=== PATIENT | female | born 1935 | race African-American/Black ===

== ENCOUNTER 2019-05-02 15:06 | Emergency (ER) | payer MEDICARE, BC ==
[~2019-05-02] VITALS: Ht 165.1 cm; Wt 79.0 kg
[~2019-05-02 15:06] MED LIST: ACETAMIN325 MG PO; ADALAT CC OR; AMLODIPINE10 MG PO; ASPIRIN EC81 MG PO; BENADRYL25 M1 PO; CALCITRIOL0.25 MC1; CLONIDINE0.1 MG; CLONIDINE0.1 MG OR; CLONIDINE0.1 MG PO; COREG12.5 MG OR; DIOVAN160 MG OR; DIOVAN80 MG PO; GLYBURIDE2.5 MG PO; GLYNASE1.5 MG; GLYNASE3 MG OR; LASIX 80 MG TAB80 MG; LIPITOR80 MG OR; METOPROL TAR25 MG PO; NIFEDIPINE60 M2; NIFEDIPINE90 MG PO; NO HOME MEDS; PERCOCET 5/325M1 TAB PO; PROCA OR; RENAL PO; RENVELA800 MG PO; [UNRECOGNIZED DRUG - OTHER] EX
[2019-05-02 16:30] VITALS: BP 168/80
== END 2019-05-02 16:45 | disposition home or self-care (01) ==
LOC: ED 15:06
DX: S00.83XA Contusion of other part of head, initial encounter (principal); W06.XXXA Fall from bed, initial encounter; Y92.003 Bedroom of unspecified non-institutional (private) residence as the place of occurrence of the external cause; S09.90XA Unspecified injury of head, initial encounter

== ENCOUNTER 2022-03-22 10:09 | Observation (INO) | payer MEDICARE, BC ==
[~2022-03-22] VITALS: Ht 165.1 cm; Wt 63.0 kg
[2022-03-22] VITALS (22 sets, daily range): BP systolic 93–139; BP diastolic 36–111
[2022-03-22 11:21] LABS: HEMATOCRIT 43.3 % (37.0-47.0); HEMOGLOBIN 14.3 g/dl (12.0-16.0); IMMATURE GRANULOCYTES 0.2 % (0.0-5.0); MEAN CELL VOLUME 84.7 fL CALC (80.0-100.0); NEUT# 3.15 thou/uL (2.00-7.15); RED BLOOD COUNT 5.11 mill/uL (4.20-5.60); RED CELL DISTRI WIDTH 15.2 % (11.5-15.5)
[2022-03-22 11:42] LABS: ALBUMIN 3.4 g/dL (3.2-5.0); TOTAL PROTEIN 7.4 g/dL (6.3-8.2)
[2022-03-22 11:43] LABS: BILIRUBIN, TOTAL 1.4 mg/dL (0.0-1.4); CREATININE 3.5 mg/dL (0.5-1.0); POTASSIUM 5.4 mmol/l (3.5-5.1)
[2022-03-22] MEDS ORDERED: RENVELA800 MG PO (12:45)
[2022-03-23] VITALS (19 sets, daily range): BP systolic 94–130; BP diastolic 55–92
[2022-03-23 05:40] LABS: MAGNESIUM 2.3 mg/dL (1.6-2.3)
[2022-03-23 05:46] LABS: CREATININE 4.9 mg/dL (0.5-1.0)
[2022-03-23] MEDS ORDERED: RENVELA800 MG PO (11:55)
[2022-03-24 04:28] VITALS: BP 119/66
[2022-03-24 06:15] LABS: HEMATOCRIT 38.1 % (37.0-47.0); HEMOGLOBIN 13.2 g/dl (12.0-16.0); MEAN CELL VOLUME 80.7 fL CALC (80.0-100.0); MEAN CORPUSCULAR HGB CONC 34.6 g/dL CAL (32.0-36.0); RED BLOOD COUNT 4.72 mill/uL (4.20-5.60); RED CELL DISTRI WIDTH 14.2 % (11.5-15.5)
[2022-03-24 06:38] VITALS: BP 123/72
[2022-03-24 06:47] LABS: ALBUMIN 2.7 g/dL (3.2-5.0); POTASSIUM 5.8 mmol/l (3.5-5.1)
[2022-03-24 06:48] LABS: CREATININE 5.9 mg/dL (0.5-1.0)
[2022-03-24 08:13] VITALS: BP 123/72
[2022-03-24] MEDS ORDERED: ELIQUIS2.5 MG PO (10:28)
[2022-03-24] MEDS ORDERED: LOPRESSOR25 MG PO (10:35)
[2022-03-24] MEDS ORDERED: PANTOPRAZOLE SO40 M1 PO (10:35)
[2022-03-24 11:19] VITALS: BP 119/60
[2022-03-24 11:55] VITALS: BP 119/60
== END 2022-03-24 12:38 | disposition home or self-care (01) ==
LOC: ED 10:09 → ED-I 12:00 → ED 12:09 → ICU 12:10 → MS2 03-23 16:45
PROVIDERS: Internal Medicine; ADMIT Internal Medicine; ATTEND Internal Medicine
DX: I48.91 Unspecified atrial fibrillation (principal); I13.11 Hypertensive heart and chronic kidney disease without heart failure, with stage 5 chronic kidney disease, or end stage renal disease; E11.22 Type 2 diabetes mellitus with diabetic chronic kidney disease; N18.6 End stage renal disease; E87.5 Hyperkalemia; N25.81 Secondary hyperparathyroidism of renal origin; I36.1 Nonrheumatic tricuspid (valve) insufficiency; E87.1 Hypo-osmolality and hyponatremia; Z87.19 Personal history of other diseases of the digestive system; Z99.2 Dependence on renal dialysis; Z20.822 Contact with and (suspected) exposure to COVID-19; Z79.84 Long term (current) use of oral hypoglycemic drugs
CPT/HCPCS: J1650